=== PATIENT | female | born 1950 | race African-American/Black ===

== ENCOUNTER 2018-07-03 09:54 | Emergency (ER) | payer MEDICAID, OTHER ==
[~2018-07-03] VITALS: Ht 162.6 cm; Wt 100.0 kg
[~2018-07-03 09:54] MED LIST: AMLO10TA4 PO; ASPI-986 PO; COR6 PO; FURO-151 PO; KDUR10 PO; LISI10TA5 PO; METR500T PO; PRAV20TA PO; PRO AIR INH; PROT40 PO
[2018-07-03 11:48] LABS: EOSINOPHILS % 3.4 % (0.0-5.0); HEMATOCRIT. 37.3 % (36.0-48.0); HEMOGLOBIN. 12.5 g/dL (12.0-16.0); LYMPHOCYTES % 23.5 % (20.0-50.0); MEAN CORPUSCULAR HEMOGLOBIN 29.3 pg (28.0-32.0); MEAN CORPUSCULAR VOLUME 87.1 fL (81.0-99.0); MEAN PLATELET VOLUME 7.6 fl (7.4-10.4); MONOCYTES % 6.5 % (2.0-8.0); NEUTROPHILS % 65.6 % (40.0-76.0); PLATELET 312 x1000/uL (130-400); RED BLOOD CELL COUNT 4.28 mill/uL (4.2-5.4); RED CELL DISTRIBUTION WIDTH 14.3 % (11.6-14.6)
[2018-07-03 11:54] LABS: CHLORIDE 106 mEq/L (98-107)
[2018-07-03 12:44] LABS: PROTHROMBIN TIME 10.5 sec (9.6-11.0)
[2018-07-03 14:57] LABS: CLARITY URINE CLOUDY (CLEAR); COLOR URINE YELLOW (YELLOW); KETONES URINE NEGATIVE (NEGATIVE); LEUKOCYTE ESTERASE URINE TRACE (NEGATIVE); NITRITE URINE NEGATIVE (NEGATIVE); OCCULT BLOOD URINE 3+ (NEGATIVE); PH URINE 5.5 (4.5-8.0); PROTEIN URINE NEGATIVE (NEGATIVE); SPECIFIC GRAVITY URINE 1.012 (1.005-1.030); UROBILINOGEN URINE 0.2 E.U./dL (0.2-1.0)
[2018-07-03] MEDS ORDERED: KETOROLAC 30MG/ML VIAL IV ONE (18:00)
[2018-07-03] MEDS ORDERED: IOHEXOL-300 100 ML BOTTLE ONE (18:40)
[2018-07-03 22:50] VITALS: BP 143/72
== END 2018-07-03 22:55 | disposition home or self-care (01) ==
LOC: ER 09:54
DX: N93.9 Abnormal uterine and vaginal bleeding, unspecified (principal); R10.9 Unspecified abdominal pain; I11.0 Hypertensive heart disease with heart failure; I50.9 Heart failure, unspecified; Z88.5 Allergy status to narcotic agent; Z79.82 Long term (current) use of aspirin; Z79.899 Other long term (current) drug therapy
CPT/HCPCS: 36415; 74177; 76770; 76830; 76856; 80053; 81003; 83690; 85025; 85610; 87086; 96374; 99284; J1885; Q9967; Z7610